=== PATIENT | female | born 1965 | race Caucasian/White ===

== ENCOUNTER 2019-04-24 17:32 | Emergency (ER) | payer OTHER ==
[~2019-04-24] VITALS: Ht 160 cm; Wt 93.7 kg
[2019-04-24 17:48] VITALS: BP 168/89; PULSE 77; RESP 21; Ht 160 cm; Wt 93.7 kg
[2019-04-24] MEDS ORDERED: LAM1CR24 TOP (19:12)
[2019-04-24] MEDS ORDERED: IBUP-1561 PO (19:13)
--- NOTE | 2019-04-24 19:18 | ERD ---
ER Documentation Chief Complaint Chief Complaint LEFT TOENAIL AVULSION HPI 53-year-old female with past medical history of hypertension, CVA 3 years ago presents with complaint of left great toe pain on Monday. She denies any recent trauma or fall reporting she noticed increasing pain at great toe with some mild swelling after going on a long walk. She otherwise without complaints denying fevers, chills, history of diabetes, recent illness, or any other acute complaints. ROS All systems reviewed and are negative except as per history of present illness. Medications Home Meds Active Scripts Ibuprofen* (Motrin*) 400 Mg Tab, 400 MG PO Q6, #30 TAB Prov:JEUDINE,GETHO PA-C 04/24/19 Terbinafine Hcl* (Lamisil*) 1% - 30 Gm Cr, 1 APPLIC TOP DAILY, #1 TUB Prov:JEUDINE,GETHO PA-C 04/24/19 Allergies Allergies: Coded Allergies: No Known Allergies (Unverified Allergy, Unknown, 03/24/16) PMhx/Soc History of Surgery: Yes Anesthesia Reaction: No Hx Neurological Disorder: No Hx Respiratory Disorders: No Hx Cardiac Disorders: Yes (HTN) Hx Psychiatric Problems: No Hx Alcohol Use: No Hx Substance Use: No Hx Tobacco Use: No Smoking Status: Never smoker FmHx Family History: No diabetes, No coronary disease, No other Physical Exam Vitals Vital Signs Date Temp Pulse Resp B/P (MAP) Pulse Ox O2 O2 Flow FiO2 Time Delivery Rate 04/24/19 98.8 77 21 168/89 95 17:48 (115) Physical Exam Const: No acute distress Head: Atraumatic Eyes: Normal Conjunctiva ENT: Normal External Ears, Nose and Mouth. Neck: Full range of motion. No meningismus. Resp: Clear to auscultation bilaterally Cardio: Regular rate and rhythm, no murmurs Abd: Soft, non tender, non distended. Normal bowel sounds Skin: No petechiae or rashes Back: No midline or flank tenderness Ext: No cyanosis, or edema, left great toe mild swelling but no surrounding erythema, nailbed cloudy, good distal pulses, 2+ capillary refill, no open l acerations or lesions, wiggles toes without pain, 5 out of 5 strength, SI LT throughout Neur: Awake and alert Psych: Normal Mood and Affect Procedures/MDM 53-year-old female presents with complaint of left great toe pain. No history of fall or injury. No history of diabetes. Symptoms likely secondary to fungal infection. I have no suspicion for any acute infectious process warranting further emergent care work-up other than stated below. Will prescribe a course of Lamisil antifungal cream, strict return precautions explained to patient in case she will need nail removal DISPOSITION PLAN: We discussed follow up with the patient's primary care doctor within 24 to 48 hours. Patient counseled regarding my diagnostic impression and care plan. Prior to discharge all questions answered. Pt agrees with treatment plan and understands strict return precautions. Precautionary instructions provided including instructions to return to the ER if not improving or for any worsening or changing symptoms or concerns. Disclaimer: Inadvertent spelling and grammatical errors are likely due to EHR/dictation software use and do not reflect on the overall quality of patient care. Also, please note that the electronic time recorded on this note does not necessarily reflect the actual time of the patient encounter. Departure Diagnosis: Primary Impression: Nail problem Condition: Stable Patient Instructions: Onychomycosis Referrals: [facility] YOU HAVE RECEIVED A MEDICAL SCREENING EXAM AND THE RESULTS INDICATE THAT YOU DO NOT HAVE A CONDITION THAT REQUIRES URGENT TREATMENT IN THE EMERGENCY DEPARTMENT. FURTHER EVALUATION AND TREATMENT OF YOUR CONDITION CAN WAIT UNTIL YOU ARE SEEN IN YOUR DOCTORS OFFICE WITHIN THE NEXT 1-2 DAYS. IT IS YOUR RESPONSIBILITY TO MAKE AN APPOINTMENT FOR FOLOW-UP CARE. IF YOU HAVE A PRIMARY DOCTOR --you should call your primary doctor and schedule an appointment IF YOU DO NOT HAVE A PRIMARY DOCTOR YOU CAN CALL OUR PHYSICIAN REFERRAL HOTLINE AT IF YOU CAN NOT AFFORD TO SEE A PHYSICIAN YOU CAN CHOSE FROM THE FOLLOWING [facility] [address] [facility] [address] [facility] [address] [facility] [address] [facility] [address] [facility]. [facility]. [address] Additional Instructions: Call your primary care doctor TOMORROW for an appointment during the next 2-3 days.See the doctor sooner or return here if your condition worsens before your appointment time. MARILOU JIANG PA-C Apr 24, 2019 19:18
== END 2019-04-24 19:25 | disposition home or self-care (01) ==
LOC: FTE 17:32
DX: M79.89 Other specified soft tissue disorders (principal); I10 Essential (primary) hypertension; L62 Nail disorders in diseases classified elsewhere; Z86.73 Personal history of transient ischemic attack (TIA), and cerebral infarction without residual deficits
CPT/HCPCS: 99283

== ENCOUNTER 2019-07-09 19:46 | Emergency (ER) | payer OTHER ==
[~2019-07-09] VITALS: Ht 160 cm; Wt 93.2 kg
[~2019-07-09 19:46] MED LIST: ATOR20TA38 PO; FER325 PO; IBUP-1561 PO; LAM1CR24 TOP; LISI10TA2 PO; ONDA4TAB14 PO
[2019-07-09 19:51] VITALS: Ht 160 cm; Wt 93.2 kg
[2019-07-09] MEDS ORDERED: ONDANSETRON 4 MG INJ IV STA (20:52)
[2019-07-09] MEDS ORDERED: SOD CHLORIDE 0.9% 1,000 ML IV STA (20:52)
[2019-07-09 22:21] VITALS: BP 147/88; PULSE 107; RESP 16
== END 2019-07-09 22:41 | disposition home or self-care (01) ==
LOC: E/R 19:46
DX: R10.13 Epigastric pain (principal); R10.12 Left upper quadrant pain; R11.2 Nausea with vomiting, unspecified; R19.7 Diarrhea, unspecified; I10 Essential (primary) hypertension; R40.2142 Coma scale, eyes open, spontaneous, at arrival to emergency department; R40.2252 Coma scale, best verbal response, oriented, at arrival to emergency department; R40.2362 Coma scale, best motor response, obeys commands, at arrival to emergency department; Z86.73 Personal history of transient ischemic attack (TIA), and cerebral infarction without residual deficits
CPT/HCPCS: 36415; 80053; 83605; 83690; 84484; 85025; 96374; 99284; J2405; J7030